=== PATIENT | female | born 1935 | race Caucasian/White ===

== ENCOUNTER → 2016-11-08 | Outpatient (CLI) | payer MEDICARE | END | disposition home or self-care (01) | LOC: PCVCCLINIC 15:57 | PROVIDERS: ATTEND Internal Medicine Cardiovascular Disease | DX: I73.9 Peripheral vascular disease, unspecified (principal); I25.10 Atherosclerotic heart disease of native coronary artery without angina pectoris; I77.9 Disorder of arteries and arterioles, unspecified; I10 Essential (primary) hypertension; E78.00 Pure hypercholesterolemia, unspecified; I48.0 Paroxysmal atrial fibrillation; E83.110 Hereditary hemochromatosis | CPT/HCPCS: 93005; G0463 ==

== ENCOUNTER → 2017-02-21 | Outpatient (CLI) | payer MEDICARE | END | disposition home or self-care (01) | LOC: PCVCCLINIC 15:06 | PROVIDERS: ATTEND Internal Medicine Cardiovascular Disease | DX: I25.10 Atherosclerotic heart disease of native coronary artery without angina pectoris (principal); I11.9 Hypertensive heart disease without heart failure; I50.42 Chronic combined systolic (congestive) and diastolic (congestive) heart failure; I73.9 Peripheral vascular disease, unspecified; E78.00 Pure hypercholesterolemia, unspecified; Z95.1 Presence of aortocoronary bypass graft; Z79.82 Long term (current) use of aspirin; Z79.899 Other long term (current) drug therapy; Z87.891 Personal history of nicotine dependence; Z88.1 Allergy status to other antibiotic agents | CPT/HCPCS: 93005; G0463 ==

== ENCOUNTER → 2017-06-12 | Outpatient (CLI) | payer MEDICARE ==
--- NOTE | 2017-06-12 12:38 | PCVCIMAG ---
EXAM: BILATERAL LOWER EXTREMITY ARTERIAL DUPLEX INDICATION: Peripheral Arterial Disease. Leg pain. FINDINGS: Right Leg: Common femoral artery is patent. 70% stenosis at the origin of the profunda femoral artery. Previous stents in the right superficial femoral artery and right popliteal artery are maintaining good patency. The anterior tibial and peroneal artery are patent. The posterior tibial artery is occluded as seen previously. Left Leg: Satisfactory arterial waveforms in the common femoral profunda femoral arteries. Previous stents in the superficial femoral artery are patent. Popliteal artery is patent. The anterior tibial artery is occluded. The peroneal artery and posterior tibial arteries are occluded. IMPRESSION: Previous right superficial femoral and popliteal artery stents maintaining satisfactory patency. Previous left superficial femoral artery stent is maintaining satisfactory patency. Unchanged right posterior tibial artery occlusion. Unchanged left anterior tibial artery occlusion. LOC:[id number]
== END | disposition home or self-care (01) ==
LOC: PCVCIMAG 10:27
PROVIDERS: ATTEND Nuclear Medicine Nuclear Cardiology
DX: I77.1 Stricture of artery (principal); I73.9 Peripheral vascular disease, unspecified; I25.10 Atherosclerotic heart disease of native coronary artery without angina pectoris; I10 Essential (primary) hypertension; I48.0 Paroxysmal atrial fibrillation; E78.00 Pure hypercholesterolemia, unspecified; E83.110 Hereditary hemochromatosis; E11.9 Type 2 diabetes mellitus without complications; K21.9 Gastro-esophageal reflux disease without esophagitis; Z79.82 Long term (current) use of aspirin; Z95.1 Presence of aortocoronary bypass graft; Z90.710 Acquired absence of both cervix and uterus; Z95.828 Presence of other vascular implants and grafts; Z87.891 Personal history of nicotine dependence; Z88.2 Allergy status to sulfonamides; Z91.048 Other nonmedicinal substance allergy status
CPT/HCPCS: 36415; 93925; G0463

== ENCOUNTER → 2017-06-27 | Outpatient (CLI) | payer MEDICARE | END | disposition home or self-care (01) | LOC: PCVCCLINIC 14:08 | PROVIDERS: ATTEND Internal Medicine Cardiovascular Disease | DX: I25.10 Atherosclerotic heart disease of native coronary artery without angina pectoris (principal); I11.0 Hypertensive heart disease with heart failure; I50.9 Heart failure, unspecified; I48.0 Paroxysmal atrial fibrillation; K21.9 Gastro-esophageal reflux disease without esophagitis; R60.9 Edema, unspecified; Z88.2 Allergy status to sulfonamides; Z91.048 Other nonmedicinal substance allergy status; Z79.82 Long term (current) use of aspirin; Z85.828 Personal history of other malignant neoplasm of skin; Z87.891 Personal history of nicotine dependence | CPT/HCPCS: 93005; G0463 ==

== ENCOUNTER → 2017-10-24 | Outpatient (CLI) | payer MEDICARE | END | disposition home or self-care (01) | LOC: PCVCIMAG 14:12 | DX: I08.3 Combined rheumatic disorders of mitral, aortic and tricuspid valves (principal); I25.10 Atherosclerotic heart disease of native coronary artery without angina pectoris; I11.0 Hypertensive heart disease with heart failure; I50.9 Heart failure, unspecified; R60.9 Edema, unspecified; I48.0 Paroxysmal atrial fibrillation; Z79.82 Long term (current) use of aspirin; Z79.899 Other long term (current) drug therapy; Z87.891 Personal history of nicotine dependence; Z95.0 Presence of cardiac pacemaker | CPT/HCPCS: 36415; 93005; 93306; G0463 ==

== ENCOUNTER → 2017-11-07 | Outpatient (CLI) | payer MEDICARE | END | disposition home or self-care (01) | LOC: PCVCCLINIC 11:20 | DX: E11.9 Type 2 diabetes mellitus without complications (principal); I25.10 Atherosclerotic heart disease of native coronary artery without angina pectoris; I48.91 Unspecified atrial fibrillation; I10 Essential (primary) hypertension; D64.9 Anemia, unspecified | CPT/HCPCS: 36415 ==

== ENCOUNTER → 2017-11-28 | Outpatient (CLI) | payer MEDICARE ==
[~2017-11-28] MED LIST: REGADENOSON 0.4 MG/5 ML DISP.SYRIN. IV
== END | disposition home or self-care (01) ==
LOC: PCVCIMAG 07:59
DX: I25.10 Atherosclerotic heart disease of native coronary artery without angina pectoris (principal); I11.0 Hypertensive heart disease with heart failure; I50.9 Heart failure, unspecified; R60.9 Edema, unspecified; I42.9 Cardiomyopathy, unspecified; I48.91 Unspecified atrial fibrillation; Z95.1 Presence of aortocoronary bypass graft; Z79.82 Long term (current) use of aspirin; Z79.899 Other long term (current) drug therapy; Z87.891 Personal history of nicotine dependence
CPT/HCPCS: 78452; 93005; 93017; A9500; G0463; J2785

== ENCOUNTER → 2018-01-01 | Outpatient (CLI) | payer MEDICARE | END | disposition home or self-care (01) | LOC: PCVCIMAG 14:56 | DX: I73.9 Peripheral vascular disease, unspecified (principal); I70.8 Atherosclerosis of other arteries; I77.9 Disorder of arteries and arterioles, unspecified; I25.10 Atherosclerotic heart disease of native coronary artery without angina pectoris; E11.9 Type 2 diabetes mellitus without complications; E78.00 Pure hypercholesterolemia, unspecified; Z87.891 Personal history of nicotine dependence; Z79.82 Long term (current) use of aspirin; Z79.899 Other long term (current) drug therapy | CPT/HCPCS: 93925; G0463 ==

== ENCOUNTER → 2018-05-08 | Outpatient (CLI) | payer MEDICARE | END | disposition home or self-care (01) | LOC: PCVCCLINIC 11:41 | DX: I48.91 Unspecified atrial fibrillation (principal); I25.10 Atherosclerotic heart disease of native coronary artery without angina pectoris; I10 Essential (primary) hypertension; R60.9 Edema, unspecified; Z79.82 Long term (current) use of aspirin; Z87.891 Personal history of nicotine dependence | CPT/HCPCS: 93005; G0463 ==

== ENCOUNTER → 2018-07-09 | Outpatient (CLI) | payer MEDICARE ==
--- NOTE | 2018-07-09 15:24 | PCVCIMAG ---
EXAM: BILATERAL CAROTID DUPLEX INDICATION: Carotid Occlusive Disease. Prior left carotid endarterectomy. FINDINGS: Doppler Measurements (centimeters per second): RIGHT: Peak CCA-93, Peak ECA-134, Diastolic ICA-49, Peak ICA-173, ICA/CCA Ratio-1.8. LEFT: Peak CCA-96, Peak ECA-87, Diastolic ICA-28, Peak ICA-99, ICA/CCA Ratio-1.0. RIGHT CAROTID: The carotid bulb has moderate plaque. The proximal internal carotid artery shows 60% stenosis. The common carotid artery shows no significant stenosis. The external carotid artery shows 40% stenosis. LEFT CAROTID: The carotid bulb has no significant plaque. The proximal internal carotid artery shows no significant stenosis. The common carotid artery shows no significant stenosis. The external carotid artery shows no significant stenosis. Antegrade flow in both vertebral arteries. IMPRESSION: 60% stenosis of the right internal carotid artery with moderate plaque. No significant stenosis of the left internal carotid artery with no significant plaque. LOC:[place] [id number]
--- NOTE | 2018-07-09 15:40 | PCVCIMAG ---
EXAM: BILATERAL LOWER EXTREMITY ARTERIAL DUPLEX INDICATION: Peripheral Arterial Disease. Leg pain. FINDINGS: Right Leg: Common femoral profunda femoral arteries are patent. Previous stent mid/upper superficial femoral artery is patent. The superficial femoral artery is patent. Mid superficial femoral artery shows 40-50% restenosis at the distal margin of a prior stent. In the distal popliteal [place] artery is increased systolic velocity of 445 cm/s consistent with 90% stenosis. The posterior tibial artery is occluded throughout. The anterior tibial artery is patent as is the peroneal artery. Left Leg: Common femoral and profunda femoral arteries are patent. Superficial femoral artery and popliteal artery are patent. Previous superficial femoral artery stent maintaining satisfactory patency. Popliteal artery is patent. Anterior tibial artery is occluded throughout its length. Mild stenosis of the tibioperoneal trunk. The peroneal artery and posterior tibial artery are patent. IMPRESSION: 50% restenosis mid left popliteal artery within prior stent. 90% stenosis distal [place] right popliteal artery. Unchanged occlusion right posterior tibial artery. Previous right and left superficial femoral artery stents maintaining satisfactory patency. Mild stenosis left tibioperoneal trunk. Unchanged left anterior tibial artery occlusion. LOC:[id number]
== END | disposition home or self-care (01) ==
LOC: PCVCIMAG 10:17
PROVIDERS: ATTEND Nuclear Medicine Nuclear Cardiology
DX: I65.21 Occlusion and stenosis of right carotid artery (principal); I73.9 Peripheral vascular disease, unspecified
CPT/HCPCS: 93880; 93925

== ENCOUNTER → 2018-07-19 | Outpatient (CLI) | payer MEDICARE ==
[~2018-07-19] MED LIST changes: +CLOPIDOGREL BISULFATE 75 MG TABLET ONE; +DIAZEPAM 10 MG TABLET. ONE; +EPTIFIBATIDE BOLUS 2,000 MCG/ML 10ML VIAL. IV ONE; +HEPARIN SODIUM 5,000 UNIT/ML VIAL for PCVC. ONE; +IODIXANOL 270 MG/ML 100 ML VIAL. ONE; +IV NORMAL SALINE 1000ML BAG 1,000 ML ONE; +LIDOCAINE 1%/EPI 1:100,000 20 ML VIAL. ONE; +MIDAZOLAM HCL/PF 2 MG/2 ML VIAL. ONE; -REGADENOSON 0.4 MG/5 ML DISP.SYRIN. IV; +WATER FOR INJECTION,STERILE 20 ML VIAL. IJ ONE; +ceFAZolin SODIUM 1 GM VIAL ONE; +fentaNYL PF VIAL 100 MCG/2 ML VIAL ONE; +hydrALAZINE 20 MG/ML VIAL. ONE
--- NOTE | 2018-07-19 13:51 | PCVCINTER ---
EXAM: 1. AORTOGRAM AND BILATERAL LOWER EXTREMITY RUNOFF ANGIOGRAM 2. BILATERAL RENAL ANGIOGRAPHY 3. LEFT RENAL ARTERY STENT PLACEMENT. 4. RIGHT TIBIOPERONEAL TRUNK ATHERECTOMY AND DRUG-ELUTING STENT STENT PLACEMENT. 5. RIGHT POPLITEAL ARTERY ATHERECTOMY AND DRUG-ELUTING STENT PLACEMENT. 6. SECONDARY THROMBECTOMY RIGHT TIBIOPERONEAL TRUNK. INDICATION: Peripheral arterial disease. Right leg pain. Hypertension. Renal atherosclerosis. No prior catheter based angiographic study is available. A full diagnostic angiogram study is performed today and the decision to intervene is based on this diagnostic study. PROCEDURE: Procedure and risks of angiography intervention is appropriate including limb loss stroke and were discussed with the patient's family and consent obtained. The patient's left groin was prepped in the normal sterile fashion. IV conscious sedation was used throughout procedure with appropriate monitoring from 11:30 AM through 1:00 PM. Ultrasound was used to interrogate the left groin and showed the left common femoral artery to be patent. A permanent spot film was obtained. Under ultrasound guidance access into the left common femoral artery was obtained and a 5 Mongolian sheath was placed. Through this a 5 Mongolian flush catheter was placed into the abdominal aorta at the level of the renal arteries and AP aortogram was performed. Catheter was positioned at the aortic bifurcation and both oblique views of the pelvis were obtained. Catheter was positioned into the left external iliac artery and left leg runoff angiography was performed. Catheter was exchanged for a visceral catheter was placed into the right renal arteries and right renal angiograms obtained. Catheter was placed into the the left renal arteries and left renal angiograms were obtained. Catheter was advanced to the level of the right external iliac artery and right leg runoff angiography was obtained. Patient was given 4500 units of heparin. Stent placement across the areas of high-grade stenosis in the left renal artery was carried out with a 6 x 15 [place] blue with subsequent dilatation to 6.0 mm. A 6 Mongolian crossover sheath was placed via the left groin to the level of the right common femoral artery. Atherectomy of the right popliteal artery was performed with 0.9 mm [employer]ran[employer] laser atherectomy catheter in the standard fashion. Atherectomy of the right tibioperoneal trunk was performed with 0.9 mm Spectranetics laser atherectomy catheter in the standard fashion. Following atherectomy small areas of thrombus were observed and because of this secondary thrombectomy throughout the right tibioperoneal trunk was carried out with mechanical suction thrombectomy catheter in the standard fashion. Minimal debris was removed. Stent placement across the areas of high-grade stenosis in the right tibioperoneal trunk was carried out with a 3.5 x 33 EluNIR drug-eluting stent with subsequent dilatation to 3.5 mm. Stent placement across the areas of high-grade stenosis in the right distal popliteal artery was carried out with a 3.5 mm EluNIR stent with subsequent dilatation to 3.8 mm. Follow-up angiogram was performed. Catheters and wires removed. Sheath was removed and hemostasis obtained using the FISH device. No immediate complications. FINDINGS: Aortogram: There is one right and one left renal artery. Moderate plaque infrarenal abdominal aorta without significant stenosis. Pelvis: The right and left common and external iliac arteries show good patency. Both internal iliac arteries are patent. Occlusion at the origin of the right profunda femoral artery. Moderate plaque distal right common femoral artery results in 50% stenosis. Moderate plaque mid left common femoral artery results in 40% stenosis. 70% stenosis origin left profunda femoral artery. Right renal artery: Moderate plaque proximal vessel causing only mild stenosis. No branch vessel stenosis. Left renal artery: Calcified plaque proximal vessel results in 80% stenosis. Right leg: Superficial femoral artery shows good patency throughout including previous stent in the mid vessel. Stent upper popliteal artery maintaining good patency. 95% stenosis distal popliteal artery. 80% stenosis mid and upper tibioperoneal trunk. Occlusion throughout the mid and distal anterior tibial artery. The posterior tibial artery is occluded throughout. Peroneal artery shows good patency throughout to refill the distal most posterior tibial artery and the dorsalis pedis. Left leg: Superficial femoral artery shows good patency throughout including areas of prior stents. Moderate plaque upper popliteal artery results in 40% stenosis not felt to be flow-limiting. The anterior tibial artery shows occlusion throughout. Mild stenosis tibioperoneal trunk. Scattered mild stenoses in the peroneal and posterior tibial arteries otherwise show satisfactory patency right runoff into the foot. Left renal artery: Following procedure as above vessel shows good patency. Right popliteal artery: Following procedure as above vessel shows good patency. Right tibioperoneal trunk: Following procedure as above vessel shows good patency throughout. IMPRESSION: Areas of high-grade stenosis left renal artery, distal right popliteal artery, and right tibial peroneal trunk were treated as above with good patency restored. 50% stenosis distal right common femoral artery not felt be flow-limiting. Note is made of occlusion of the origin of the right profunda femoral artery. LOC:[id number]
== END | disposition home or self-care (01) ==
LOC: PCVCINTER 13:28
PROVIDERS: ATTEND Nuclear Medicine Nuclear Cardiology
DX: I70.221 Atherosclerosis of native arteries of extremities with rest pain, right leg (principal); I70.1 Atherosclerosis of renal artery; I65.21 Occlusion and stenosis of right carotid artery; I77.1 Stricture of artery; I10 Essential (primary) hypertension
CPT/HCPCS: 36252; 37186; 37227; 37231; 37236; 75716; 76937; 99152; 99153; C1725; C1751; C1757; C1760; C1769; C1876; C1885; C1887; C1894; J0690; J1327; J1644; J2250; J3010; J3490; J7030; J0360

== ENCOUNTER → 2018-10-23 | Outpatient (CLI) | payer MEDICARE | END | disposition home or self-care (01) | LOC: PCVCCLINIC 11:35 | PROVIDERS: ATTEND Internal Medicine Cardiovascular Disease | DX: I25.10 Atherosclerotic heart disease of native coronary artery without angina pectoris (principal); I42.9 Cardiomyopathy, unspecified; I10 Essential (primary) hypertension; R60.9 Edema, unspecified; Z79.82 Long term (current) use of aspirin; Z87.891 Personal history of nicotine dependence | CPT/HCPCS: 93005; G0463 ==

== ENCOUNTER → 2018-11-05 | Outpatient (CLI) | payer MEDICARE ==
--- NOTE | 2018-11-05 09:18 | PCVCIMAG ---
EXAM: BILATERAL LOWER EXTREMITY ARTERIAL DUPLEX INDICATION: Peripheral Arterial Disease. Leg pain. FINDINGS: Right Leg: Common femoral profunda femoral arteries are patent. Superficial femoral and popliteal arteries are patent. Previous stent mid superficial femoral artery and right popliteal artery maintaining good patency. Occlusion of the mid and distal anterior tibial artery and throughout the posterior tibial artery. Peroneal artery is patent. Left Leg: Common femoral profunda femoral arteries are patent. Superficial femoral artery is patent including stents in its distal portion. Mild stenosis mid [place] popliteal artery not felt be flow-limiting. Occlusion of the anterior tibial artery. The peroneal and posterior tibial arteries show satisfactory patency. IMPRESSION: Previous right superficial femoral artery and popliteal artery stents are maintaining satisfactory patency. Unchanged occlusion of the right anterior and posterior tibial arteries as described. Previous left superficial femoral artery stent maintaining satisfactory patency. Mild stenosis mid [place] left popliteal artery. Occlusion throughout the left anterior tibial artery is unchanged. LOC:[place] [id number]
== END | disposition home or self-care (01) ==
LOC: PCVCIMAG 08:19
PROVIDERS: ATTEND Nuclear Medicine Nuclear Cardiology
DX: I73.9 Peripheral vascular disease, unspecified (principal); I77.9 Disorder of arteries and arterioles, unspecified; I25.10 Atherosclerotic heart disease of native coronary artery without angina pectoris; I48.0 Paroxysmal atrial fibrillation; E78.00 Pure hypercholesterolemia, unspecified; E11.9 Type 2 diabetes mellitus without complications; I11.0 Hypertensive heart disease with heart failure; I50.9 Heart failure, unspecified; K21.9 Gastro-esophageal reflux disease without esophagitis; E78.5 Hyperlipidemia, unspecified; Z79.82 Long term (current) use of aspirin; Z79.899 Other long term (current) drug therapy; Z87.891 Personal history of nicotine dependence
CPT/HCPCS: 93925; G0463

== ENCOUNTER → 2019-04-22 | Outpatient (CLI) | payer MEDICARE ==
--- NOTE | 2019-04-22 10:44 | PCVCIMAG ---
APPROVED REPORT Laterality: Bilateral Indications Stenosis Doppler Spectral Velocity Analysis PSV / EDVPSV / EDV ECA (R) 120 / 8 cm/sECA (L) 94 / 0 cm/s dICA (R) 108 / 18 cm/sdICA (L) 86 / 29 cm/s [place] (R) 144 / 35 cm/smICA (L) 89 / 24 cm/s pICA (R) 152 / 35 cm/spICA (L) 73 / 11 cm/s Bulb (R) 82 / 18 cm/sBulb (L) 90 / 18 cm/s dCCA (R) 81 / 18 cm/sdCCA (L) 100 / 19 cm/s mCCA (R) 92 / 17 cm/smCCA (L) 103 / 21 cm/s Vert (R) 48 / 0 cm/sVert (L) 60 / 22 cm/s ICA/CCA 1.88 ICA/CCA 0.89 Findings The right carotid bulb has moderate calcified plaque. The right proximal internal carotid artery shows 50-60% stenosis. The right common carotid artery shows no significant stenosis. The right external carotid artery shows no significant stenosis. The left carotid bulb has mild plaque. The left proximal internal carotid artery shows no significant stenosis. The left common carotid artery shows no significant stenosis. The left external carotid artery shows no significant stenosis. Conclusion 1. Right internal carotid artery stenosis (50-60%). 2. Left internal carotid artery mild plaquing without significant stenosis 3. Antegrade vertebral flow In comparison with the study dated July 09, 2018, no significant differences were identified.
--- NOTE | 2019-04-22 15:16 | PCVCIMAG ---
EXAM: BILATERAL LOWER EXTREMITY ARTERIAL DUPLEX INDICATION: Peripheral Arterial Disease. Leg pain. FINDINGS: Right Leg: Common femoral profunda femoral arteries are patent. Superficial femoral artery is patent including prior stent throughout the mid and distal portion. Increased systolic velocity 362 cm/s mid [place] popliteal artery consistent with 80% stenosis has developed since prior study. Previous stent distal popliteal artery and tibioperoneal trunk appears patent. Unchanged occlusion posterior tibial artery. Peroneal artery shows blunted arterial flow as does the proximal/mid anterior tibial artery. Distal anterior tibial artery is occluded. Left Leg: Common femoral and profunda femoral arteries are patent. Superficial femoral artery and popliteal artery are patent. Previous stent distal superficial femoral artery is patent. Occlusion of the anterior tibial artery. Peroneal artery is patent. 80% stenosis distal posterior tibial artery. IMPRESSION: 80% stenosis mid [place] right popliteal artery has developed since prior study. Previous stent distal left popliteal artery and extending into the right tibioperoneal trunk appears patent. Previous right superficial femoral artery stent is patent. Previous left superficial femoral artery stent is patent. Unchanged occlusion of the right posterior tibial artery and left anterior tibial artery. LOC:[id number]
== END | disposition home or self-care (01) ==
LOC: PCVCIMAG 09:57
PROVIDERS: ATTEND Nuclear Medicine Nuclear Cardiology
DX: I65.21 Occlusion and stenosis of right carotid artery (principal); E78.00 Pure hypercholesterolemia, unspecified
CPT/HCPCS: 93880; 93925

== ENCOUNTER → 2019-05-15 | Outpatient (CLI) | payer MEDICARE ==
--- NOTE | 2019-05-15 14:24 | PCVCIMAG ---
APPROVED REPORT Study performed: 05/15/2019 13:15:19 EXAM: Comprehensive 2D, Doppler, and color-flow Echocardiogram Patient Location: Echo lab Status: routine BSA: 1.80 Rhythm: NSR Other Information Study Quality: Adequate Risk Factors: Cardiac Risk Factors: HTN, Hyperlipidemia, DM Indications PAD 2D Dimensions IVSd: 9.21 (7-11mm)LVOT Diam: 19.03 (18-24mm) LVDd: 46.44 mm PWd: 9.90 (7-11mm)Ascending Ao: 29.62 (22-36mm) LVDs: 39.84 (25-40mm) Left Atrium: 42.58 (27-40mm) Aortic Root: 30.66 mm LV Single Plane 4CH: 34.89 % LV Single Plane 2CH: 30.59 % Biplane EF: 31.1 % Volumes Left Atrial Volume (Systole) Single Plane 4CH: 68.70 mLSingle Plane 2CH: 55.36 mL LA ESV Index: 37.00 mL/m2 Aortic Valve AoV Peak Michael.: 1.37 m/s AO Peak Gr.: 7.56 mmHgLVOT Max P.01 mmHg LVOT Mean P.90 mmHg LVOT Max V: 0.87 m/s LVOT Mean V: 0.66 m/s LVOT V1 VTI: 20.71 cm DAVID Vmax: 1.79 cm2 SV (LVOT): 58.85 mL Mitral Valve E/A Ratio: 1.1 MV Decel. Time: 174.87 ms MV E Max Michael.: 1.11 m/s MV A Michael.: 1.04 m/s MV VTI: 293.42 mm MVA VTI: 200.57 mm2 MV PHT: 69.64 ms MVA (PHT): 3.16 cm2 TDI E/Lateral E': 18.50E/Medial E': 22.20 Medial E' Michael.: 0.05 m/s Lateral E' Michael.: 0.06 m/s Pulmonary Valve PV Peak Gr.: 2.18 mmHg Pulmonary Vein P Vein S: 0.43 m/sP Vein A: 0.41 m/s P Vein D: 0.26 m/sP Vein A Dur.: 83.0 msec P Vein S/D Ratio: 1.65 Tricuspid Valve TR Peak Michael.: 2.80 m/s TR Peak Gr.: 31.46 mmHg Left Ventricle The left ventricle is normal size. Regional wall motion abnormalities are noted. There is hypokinesis of the inferolateral wall. There is normal left ventricular wall thickness. Left ventricular systolic function is moderately decreased. LVEF is 40%. Grade II - pseudonormal filling dynamics. Right Ventricle The right ventricle is normal size. The right ventricular systolic function is normal. Atria Left atrium is mildly dilated. The right atrium size is normal. Aortic Valve The Aortic valve is sclerotic. No aortic regurgitation is present. There is no aortic valvular stenosis. Mitral Valve Moderate mitral annular calcification. There is no mitral valve regurgitation noted. No evidence of mitral valve stenosis. Tricuspid Valve The tricuspid valve is normal in structure. Trace tricuspid regurgitation. Pulmonary artery pressure is 38mmHg. Pulmonic Valve The pulmonary valve is normal in structure. There is no pulmonic valvular regurgitation. Great Vessels The aortic root is normal in size. IVC is normal in size and collapses >50% with inspiration. Pericardium There is no pericardial effusion. <Conclusion> The left ventricle is normal size. There is normal left ventricular wall thickness. Left ventricular systolic function is moderately decreased. LVEF is 40%. Regional wall motion abnormalities are noted. Grade II - pseudonormal filling dynamics. The right ventricle is normal size. Left atrium is mildly dilated. The Aortic valve is sclerotic. Moderate mitral annular calcification. There is no mitral valve regurgitation noted. Trace tricuspid regurgitation. Pulmonary artery pressure is 38mmHg.
== END | disposition home or self-care (01) ==
LOC: PCVCIMAG 13:03
PROVIDERS: ATTEND Internal Medicine Cardiovascular Disease
DX: I35.8 Other nonrheumatic aortic valve disorders (principal); I25.10 Atherosclerotic heart disease of native coronary artery without angina pectoris; I10 Essential (primary) hypertension; E78.00 Pure hypercholesterolemia, unspecified; I73.9 Peripheral vascular disease, unspecified; Z79.82 Long term (current) use of aspirin; Z87.891 Personal history of nicotine dependence
CPT/HCPCS: 93005; 93306; G0463

== ENCOUNTER → 2019-08-21 | Outpatient (CLI) | payer MEDICARE ==
[~2019-08-21] MED LIST changes: -CLOPIDOGREL BISULFATE 75 MG TABLET ONE; -DIAZEPAM 10 MG TABLET. ONE; -EPTIFIBATIDE BOLUS 2,000 MCG/ML 10ML VIAL. IV ONE; -HEPARIN SODIUM 5,000 UNIT/ML VIAL for PCVC. ONE; -IODIXANOL 270 MG/ML 100 ML VIAL. ONE; +IPRATRPIUM/ALBUTEROL 0.5/2.5MG 3 ML NEBU. ONE; -IV NORMAL SALINE 1000ML BAG 1,000 ML ONE; -LIDOCAINE 1%/EPI 1:100,000 20 ML VIAL. ONE; -MIDAZOLAM HCL/PF 2 MG/2 ML VIAL. ONE; -WATER FOR INJECTION,STERILE 20 ML VIAL. IJ ONE; -ceFAZolin SODIUM 1 GM VIAL ONE; -fentaNYL PF VIAL 100 MCG/2 ML VIAL ONE; -hydrALAZINE 20 MG/ML VIAL. ONE
--- NOTE | 2019-08-21 16:33 | PCVCIMAG ---
EXAM: RIGHT LOWER EXTREMITY ARTERIAL DUPLEX INDICATION: Peripheral Arterial Disease. Leg pain. FINDINGS: Right Leg: Common femoral and profunda femoral arteries are patent. Superficial femoral artery and popliteal arteries show adequate patency throughout including previous stent mid superficial femoral artery and upper popliteal artery. Previous stent tibioperoneal trunk is patent. The anterior tibial and posterior tibial arteries are occluded. IMPRESSION: Previous right superficial femoral and popliteal artery stents remain patent. Previous right tibioperoneal trunk stent remains patent. Unchanged occlusion of the right anterior and posterior tibial arteries. LOC:[id number]
== END | disposition home or self-care (01) ==
LOC: PCVCIMAG 14:18
PROVIDERS: ATTEND Nuclear Medicine Nuclear Cardiology
DX: I73.9 Peripheral vascular disease, unspecified (principal); I11.9 Hypertensive heart disease without heart failure; I50.9 Heart failure, unspecified; I25.10 Atherosclerotic heart disease of native coronary artery without angina pectoris; K21.9 Gastro-esophageal reflux disease without esophagitis; E78.5 Hyperlipidemia, unspecified; I48.0 Paroxysmal atrial fibrillation
CPT/HCPCS: 93926; J7620